=== PATIENT | female | born 1970 | race Caucasian/White ===

== ENCOUNTER 2017-04-06 01:32 | Inpatient (IN) | payer OTHER ==
[~2017-04-06] VITALS: Ht 157.5 cm; Wt 65.6 kg
[~2017-04-06 01:32] MED LIST: ATARAX,VISTARIL50 MG PO; Atarax,Vistaril PO; BYETTA PEN250 MCG/ML SC; BYETTA10 MCG/0.0 SQ; DICLOFENAC POTA50 MG PO; EFFEXOR XR150 MG PO; Effexor XR PO; GEODON80 MG PO; GLUCOPHAGE500 MG PO; Halfprin PO; LITHIUM CARBON300 M1 PO; LORTAB 7.5/51 TABLET PO; LUNESTA1 MG PO; LUNESTA3 MG PO; Lithium Carbonate PO; Motrin PO; PREMARIN1.25 MG PO; PREVACID30 MG PO; Prevacid PO; SYNTHROID50 MCG PO; VASOTEC10 MG PO; Vasotec PO; Vicodin,Lortab 5/500 PO; WELLBUTRIN XL300 MG PO; ZOCOR10 MG PO; Zocor PO
[2017-04-06 02:12] LABS: HEMATOCRIT 25.2 % (36.0-46.0); MCH 27.9 PG (29.0-34.0); MCHC 31.3 G/DL (30.0-36.0); PLATELET COUNT 286 K/uL (156-360); RBC DIS.WIDTH-CV 14.6 % (11.8-14.6); RBC DIS.WIDTH-SD 47.6 % (39-53); RED BLOOD COUNT 2.83 M/uL (3.80-5.20); WHITE BLOOD COUNT 8.9 K/uL (4.1-10.2)
[2017-04-06 02:21] LABS: CHLORIDE 111 mEq/L (99-109); POTASSIUM 4.2 mEq/L (3.7-5.4); SODIUM 134 mEq/L (136-147)
[2017-04-06 02:22] LABS: GLUCOSE 106 mg/dL (70-99)
[2017-04-06 02:24] LABS: ANION GAP 2 MEQ/L (2-14)
[2017-04-06 02:26] LABS: GFR ESTIMATE (CALCULATED) 32 mL/min/; SERUM ETHYL ALCOHOL < 10 mg/dL
[2017-04-06 02:28] LABS: UREA NITROGEN (BUN) 21 mg/dL (9-23)
[2017-04-06 02:30] LABS: SALICYLATE < 5.0 MG/DL (15-30)
[2017-04-06 02:35] LABS: TROP-I INTERPRETATION NEGATIVE; TROPONIN-I < 0.01 ng/mL (0.0-0.30)
[2017-04-06 02:36] LABS: QUANTITATIVE HCG < 4.0 MIU/ML
[2017-04-06 03:07] LABS: CREATINE KINASE 41 IU/L (1-294)
[2017-04-06 05:41] LABS: ADD MIUA? YES; BILIRUBIN NEGATIVE; BLOOD NEGATIVE; COLOR STRAW ((YELLOW)); GLUCOSE (STRIP) NEGATIVE; KETONES NEGATIVE; LEUKOCYTES NEGATIVE; NITRITE NEGATIVE; PROTEIN (STRIP) NEGATIVE; SPECIFIC GRAVITY 1.004 (1.000-1.030); UROBILINOGEN 0.2 MG/DL (0.2-1.0)
[2017-04-06 05:47] LABS: BACTERIA RARE /HPF; EPITHELIAL CELLS 2+ /HPF; MUCUS NONE SEEN /LPF; RED BLOOD CELLS 0-5 /HPF (0-5); UCUL ADDED? NO; WHITE BLOOD CELLS 0-5 /HPF (0-5)
[2017-04-06 05:49] LABS: AMPHETAMINE NEGATIVE (500 ng/mL); BARBITURATES NEGATIVE (200 ng/mL); BENZODIAZEPINES NEGATIVE (150 ng/mL); COCAINE NEGATIVE (150 ng/mL); INTERNAL CONTROLS VALID? YES; METHADONE NEGATIVE (200 ng/mL); METHAMPHETAMINE NEGATIVE (500 ng/mL); OPIATES (MORPHINE) NEGATIVE (100 ng/mL); OXYCODONE NEGATIVE (100 ng/mL); PHENCYCLIDINE NEGATIVE (25 ng/mL); PROPOXYPHENE NEGATIVE (300 ng/mL); THC CANNABINOIDS NEGATIVE (50 ng/mL); TRICYCLIC ANTIDEPRESSANTS PRESUMPTIVE POSITIVE (300 ng/mL)
[2017-04-06] MEDS ORDERED: LUNESTA3 MG PO (07:29)
[2017-04-06] MEDS ORDERED: LANSOPRAZOLE30 MG PO (07:31)
[2017-04-06] MEDS ORDERED: SYNTHROID75 MCG PO (07:32)
[2017-04-06] MEDS ORDERED: LITHIUM CARBON300 MG PO (07:32)
[2017-04-06] MEDS ORDERED: ULTRAM50 MG PO (07:33)
[2017-04-06] MEDS ORDERED: ZESTRIL20 MG PO (07:34)
[2017-04-06] MEDS ORDERED: SEROQUEL100 MG PO (07:34)
[2017-04-06] MEDS ORDERED: INDERAL20 MG PO (07:34)
[2017-04-06] MEDS ORDERED: PREMARIN1.25 MG PO (07:35)
[2017-04-06] MEDS ORDERED: TOPAMAX50 MG PO (07:35)
[2017-04-06] MEDS ORDERED: MYRBETRIQ50 MG PO (07:35)
[2017-04-06 11:05] VITALS: BP 118/69
[2017-04-06 12:20] LABS: HEMATOCRIT 27.7 % (36.0-46.0); MCV 90.5 FL (83-99)
[2017-04-06 12:29] LABS: IMM.RETIC FRACTION 11.2 % (3-19); RETIC HGB EQUIVALENT 34.3 (28-36); RETICULOCYTE COUNT 1.5 % (0.5-1.8)
[2017-04-06 13:53] LABS: IRON 47 MCG/DL (35-150); PREALBUMIN 19.5 mg/dL (10-40); SAMPLE HEMOLYSIS CHECK 0; SAMPLE ICTERIC CHECK 0; SAMPLE LIPEMIA CHECK 0
[2017-04-06 14:11] LABS: LITHIUM 1.6 MEQ/L (0.6-1.2)
[2017-04-06 14:13] LABS: FERRITIN 20 NG/ML (10-291)
[2017-04-06 16:13] VITALS: BP 110/65
[2017-04-06 19:04] VITALS: BP 120/68
[2017-04-06 20:07] LABS: HEMATOCRIT 29.3 % (36.0-46.0); MCV 90.7 FL (83-99)
[2017-04-07 00:25] VITALS: BP 102/70
[2017-04-07 04:12] VITALS: BP 123/85
[2017-04-07 04:34] LABS: HEMATOCRIT 27.1 % (36.0-46.0); MCH 27.9 PG (29.0-34.0); MEAN PLAT.VOLUME 10.8 uM^3 (9.5-12.4); PLATELET COUNT 275 K/uL (156-360); RBC DIS.WIDTH-CV 14.9 % (11.8-14.6); RBC DIS.WIDTH-SD 49.2 % (39-53); RED BLOOD COUNT 3.01 M/uL (3.80-5.20); WHITE BLOOD COUNT 6.4 K/uL (4.1-10.2)
[2017-04-07 04:44] LABS: CHLORIDE 121 mEq/L (99-109)
[2017-04-07 04:46] LABS: GLUCOSE 105 mg/dL (70-99); SODIUM 144 mEq/L (136-147)
[2017-04-07 04:48] LABS: ANION GAP 3 MEQ/L (2-14); TOTAL BILIRUBIN 0.2 mg/dL (0.0-1.0)
[2017-04-07 04:50] LABS: ALKALINE PHOSPHATASE 84 IU/L (3-129); GFR ESTIMATE (CALCULATED) > 59 mL/min/
[2017-04-07 04:51] LABS: UREA NITROGEN (BUN) 10 mg/dL (9-23)
[2017-04-07 08:20] VITALS: BP 136/80
== END 2017-04-07 11:14 | disposition home or self-care (01) | DRG 315 ==
LOC: EME → EDBD 01:32 → EDOF 08:06 → 2EASTP 10:44
PROVIDERS: Emergency Medicine; Family Medicine
DX: I95.9 Hypotension, unspecified (principal); N17.9 Acute kidney failure, unspecified; D50.9 Iron deficiency anemia, unspecified; E03.9 Hypothyroidism, unspecified; E78.5 Hyperlipidemia, unspecified; F31.9 Bipolar disorder, unspecified; G43.909 Migraine, unspecified, not intractable, without status migrainosus; I10 Essential (primary) hypertension; K21.9 Gastro-esophageal reflux disease without esophagitis; G47.00 Insomnia, unspecified; E86.0 Dehydration; E86.1 Hypovolemia; E87.6 Hypokalemia; R63.0 Anorexia; E86.9 Volume depletion, unspecified
CPT/HCPCS: 70450; 71010; 80048; 80053; 80178; 81003; 82550; 82607; 82728; 82746; 83540; 84134; 84466; 84484; 84702; 85014; 85018; 85027; 85045; 93005; 99281; 99284; C9113; G0480; J7030

== ENCOUNTER 2018-02-25 16:43 | Inpatient (IN) | payer OTHER ==
[~2018-02-25] VITALS: Ht 157.5 cm; Wt 65.0 kg
[~2018-02-25 16:43] MED LIST changes: +INDERAL20 MG PO; +LANSOPRAZOLE30 MG PO; +LITHIUM CARBON300 MG PO; +MYRBETRIQ50 MG PO; +SEROQUEL50 MG PO; +SYNTHROID75 MCG PO; +TOPAMAX50 MG PO; +ULTRAM50 MG PO; +ZESTRIL20 MG PO
[2018-02-25 17:22] LABS: BASOPHIL (%) 0.5 % (0-1); BASOPHIL COUNT 0.1 K/uL (0-0.1); EOSINOPHIL (%) 1.9 % (0-5); EOSINOPHIL COUNT 0.2 K/uL (0-0.3); HEMATOCRIT 35.7 % (36.0-46.0); HEMOGLOBIN 12.1 G/DL (11.9-15.5); IMMATURE GRANULOCYTE (%) 0.5 % (0.0-0.7); LYMPHOCYTE (%) 15.7 % (15-42); LYMPHOCYTE COUNT 1.7 K/uL (1.0-2.8); MCH 31.3 PG (29.0-34.0); MCHC 33.9 G/DL (30.0-36.0); MCV 92.2 FL (83-99); MONOCYTE (%) 6.4 % (3-12); MONOCYTE COUNT 0.7 K/uL (0-0.8); NEUTROPHIL COUNT 8.2 K/uL (1.8-6.4); PLATELET COUNT 257 K/uL (156-360); RBC DIS.WIDTH-CV 12.8 % (11.8-14.6); RBC DIS.WIDTH-SD 43.5 % (39-53); RED BLOOD COUNT 3.87 M/uL (3.80-5.20); WHITE BLOOD COUNT 10.9 K/uL (4.1-10.2)
[2018-02-25 17:30] LABS: ALBUMIN 3.6 g/dL (3.2-4.8); CHLORIDE 106 mEq/L (99-109); POTASSIUM 4.5 mEq/L (3.7-5.4); SODIUM 131 mEq/L (136-147)
[2018-02-25 17:33] LABS: GLUCOSE 97 mg/dL (70-99); TOTAL PROTEIN 6.2 g/dL (6.4-8.3)
[2018-02-25 17:35] LABS: TOTAL BILIRUBIN 0.3 mg/dL (0.0-1.0)
[2018-02-25 17:36] LABS: ALKALINE PHOSPHATASE 110 IU/L (3-129); CREATININE 2.2 mg/dL (0.6-1.3); GFR ESTIMATE (CALCULATED) 25 mL/min/
[2018-02-25 17:37] LABS: UREA NITROGEN (BUN) 24 mg/dL (9-23)
[2018-02-25 17:38] LABS: AST (GOT) 13 IU/L (2-34)
[2018-02-25 17:39] LABS: ALT (GPT) 11 IU/L (3-49)
[2018-02-25 17:42] LABS: TROP-I INTERPRETATION NEGATIVE; TROPONIN-I 0.01 ng/mL (0.0-0.30)
[2018-02-25 17:45] LABS: QUANTITATIVE HCG < 4.0 MIU/ML
[2018-02-25] MEDS ORDERED: TOVIAZ8 MG PO (19:47)
[2018-02-25] MEDS ORDERED: INDERAL20 MG PO (19:49)
[2018-02-25] MEDS ORDERED: IRON325 M1 PO (19:50)
[2018-02-25] MEDS ORDERED: PRINIVIL20 MG PO (19:50)
[2018-02-25 20:40] LABS: APPEARANCE SL.HAZY ((CLEAR)); BILIRUBIN NEGATIVE; BLOOD NEGATIVE; COLOR YELLOW ((YELLOW)); GLUCOSE (STRIP) NEGATIVE; KETONES NEGATIVE; LEUKOCYTES NEGATIVE; NITRITE NEGATIVE; PROTEIN (STRIP) NEGATIVE; SPECIFIC GRAVITY 1.005 (1.000-1.030); UROBILINOGEN 0.2 MG/DL (0.2-1.0)
[2018-02-25 21:00] LABS: AMPHETAMINE NEGATIVE (500 ng/mL); BACTERIA RARE /HPF; BARBITURATES NEGATIVE (200 ng/mL); BENZODIAZEPINES NEGATIVE (150 ng/mL); BUPRENORPHINE NEGATIVE (10 ng/mL); COCAINE NEGATIVE (150 ng/mL); EPITHELIAL CELLS 2+ /HPF; METHADONE NEGATIVE (200 ng/mL); METHAMPHETAMINE NEGATIVE (500 ng/mL); MUCUS TRACE /LPF; OPIATES (MORPHINE) NEGATIVE (100 ng/mL); OXYCODONE NEGATIVE (100 ng/mL); PHENCYCLIDINE NEGATIVE (25 ng/mL); PROPOXYPHENE NEGATIVE (300 ng/mL); RED BLOOD CELLS 0-5 /HPF (0-5); THC CANNABINOIDS NEGATIVE (50 ng/mL); TRICYCLIC ANTIDEPRESSANTS NEGATIVE (300 ng/mL); UCUL ADDED? NO; WHITE BLOOD CELLS 0-5 /HPF (0-5)
[2018-02-25 23:21] VITALS: BP 108/57
[2018-02-26 07:05] LABS: CHLORIDE 120 MEQ/L (99-109); GLUCOSE 91 mg/dL (70-99); IRON 114 MCG/DL (35-150); POTASSIUM 4.7 MEQ/L (3.7-5.4); UREA NITROGEN (BUN) 19 mg/dL (9-23)
[2018-02-26 07:20] LABS: LIPASE 78 U/L (1.0-51.0)
[2018-02-26 07:28] LABS: CREATININE 1.3 MG/DL (0.6-1.3); GFR ESTIMATE (CALCULATED) 46 mL/min/; SODIUM 142 MEQ/L (136-147)
[2018-02-26 07:35] VITALS: BP 124/60
[2018-02-26 08:12] LABS: THYROTROPIN (TSH) 0.77 MIU/L (0.4-5.5)
[2018-02-26 08:18] LABS: FERRITIN 44 NG/ML (10-291)
[2018-02-26 16:06] VITALS: BP 106/56
[2018-02-26 21:47] VITALS: BP 112/72
[2018-02-27 01:06] VITALS: BP 110/68
[2018-02-27 06:52] LABS: BASOPHIL (%) 0.4 % (0-1); EOSINOPHIL (%) 1.9 % (0-5); EOSINOPHIL COUNT 0.2 K/uL (0-0.3); HEMATOCRIT 36.7 % (36.0-46.0); HEMOGLOBIN 11.9 G/DL (11.9-15.5); IMMATURE GRANULOCYTE (%) 0.4 % (0.0-0.7); LYMPHOCYTE (%) 24.7 % (15-42); LYMPHOCYTE COUNT 2.2 K/uL (1.0-2.8); MCH 30.7 PG (29.0-34.0); MCHC 32.4 G/DL (30.0-36.0); MCV 94.8 FL (83-99); MONOCYTE (%) 7.2 % (3-12); MONOCYTE COUNT 0.7 K/uL (0-0.8); NEUTROPHIL (%) 65.4 % (45-76); NEUTROPHIL COUNT 5.9 K/uL (1.8-6.4); PLATELET COUNT 237 K/uL (156-360); RBC DIS.WIDTH-CV 12.8 % (11.8-14.6); RBC DIS.WIDTH-SD 44.3 % (39-53); RED BLOOD COUNT 3.87 M/uL (3.80-5.20); WHITE BLOOD COUNT 9.1 K/uL (4.1-10.2)
[2018-02-27 07:21] LABS: CHLORIDE 114 MEQ/L (99-109); CREATININE 0.9 MG/DL (0.6-1.3); GFR ESTIMATE (CALCULATED) > 59 mL/min/; GLUCOSE 105 mg/dL (70-99); POTASSIUM 3.9 MEQ/L (3.7-5.4); SODIUM 139 MEQ/L (136-147); UREA NITROGEN (BUN) 14 mg/dL (9-23)
[2018-02-27 07:53] VITALS: BP 102/70
[2018-02-27] MEDS ORDERED: QUETIAPINE FUM100 MG PO (15:35)
[2018-02-27] MEDS ORDERED: CIPROFLOXACIN500 M1 PO (15:35)
[2018-02-27] MEDS ORDERED: LITHIUM CARBON300 MG PO ×2 (15:36→16:37)
[2018-02-27] MEDS ORDERED: PRINIVIL20 MG PO (15:38)
== END 2018-02-27 16:39 | disposition home or self-care (01) | DRG 683 ==
LOC: EME 16:43 → EDOF 20:49 → 5EAST 20:49 → ENRESERV 20:50 → 5EAST 22:05
PROVIDERS: Emergency Medicine; Family Medicine
DX: N17.9 Acute kidney failure, unspecified (principal); R10.32 Left lower quadrant pain; T43.595A Adverse effect of other antipsychotics and neuroleptics, initial encounter; R55 Syncope and collapse; I95.9 Hypotension, unspecified; E86.0 Dehydration; G43.909 Migraine, unspecified, not intractable, without status migrainosus; F31.60 Bipolar disorder, current episode mixed, unspecified; I10 Essential (primary) hypertension; E78.5 Hyperlipidemia, unspecified; E78.1 Pure hyperglyceridemia; E03.9 Hypothyroidism, unspecified; R32 Unspecified urinary incontinence; D50.9 Iron deficiency anemia, unspecified; G25.0 Essential tremor; I73.00 Raynaud's syndrome without gangrene; K21.9 Gastro-esophageal reflux disease without esophagitis; Z91.81 History of falling; Z78.0 Asymptomatic menopausal state; Z90.710 Acquired absence of both cervix and uterus
CPT/HCPCS: 70450; 71045; 76700; 80048; 80053; 80178; 81003; 82728; 83540; 83690; 84439; 84443; 84484; 84702; 85025; 85379; 87086; 93005; 99281; 99285; J7030